=== PATIENT | female | born 1970 | race African-American/Black ===

== ENCOUNTER 2019-11-23 06:21 | Inpatient (IN) ==
--- NOTE | 2019-11-17 16:37 | PAT Medication Instructions ---
Medication Instructions Date of Service November 17, 2019 Home Medications cyclobenzaprine 5 mg PO TID PRN gabapentin 300 mg PO HS naproxen sodium [Aleve] 660 mg PO BID PRN ASK your surgeon for instructions naproxen sodium [Aleve] 660 mg PO BID PRN DO NOT take the morning of surgery cyclobenzaprine 5 mg PO TID PRN Take evening before surgery cyclobenzaprine 5 mg PO TID PRN gabapentin 300 mg PO HS OTHERWISE NOTHING TO EAT OR DRINK AFTER MIDNIGHT Other Notes If you have any questions please call us at [phone] or [phone] or [phone] or [phone]
--- NOTE | 2019-11-21 11:00 | Anesthesiology Consultation ---
Date of Service November 21, 2019 Assessment & Plan (1) Encounter for pre-operative examination: Chart Review Chart Review: Acceptable Risk for Surgery and Patient seen in Pre Admission Testing Per PAT appt on 11/21/19, pt denies any recent travel. Had for preop Covid testing 11/[address] Gray's office= results negative - states she has been social distancing and self quarantining since that time. Educated on importance of continuing to self quarantine, social distance and to wear mask in public both for the patient and household contacts. Teaching & Discussion Pre-Anesthesia Teaching/Discussion Notes: Instructed NPO after midnight before surgery,except medications with 15 cc of water. Medication instructions provided according to the PAT guidelines. History Surgery Operation Date: 11/23/19 11:25 Proposed Procedures p C5-C7 Anterior Cervical Discectomy and Fusion, Spinal Cord Monitoring - Loi Gray, DO Height/Weight Height: 5 ft 6 in Weight: 73.6 kg Allergies Allergy/AdvReac Type Severity Reaction Status Date / Time No Known Allergies Allergy Verified 11/13/19 15:03 Medications Home Medications Medication Instructions Recorded Confirmed Last Taken cyclobenzaprine 5 mg PO TID PRN 11/13/19 11/13/19 Unknown gabapentin 300 mg PO HS 11/13/19 11/13/19 Unknown naproxen sodium [Aleve] 660 mg PO BID PRN 11/13/19 11/13/19 Unknown Past Medical History Medical History Bowel perforation 2000> HAPPENED DURING ENDOMETERAL ABLATION Cardiac murmur SINCE KID - RESOLVED PER PATIENT Degenerative disc disease Depression STABLE AND CONTROLLED Hx of small bowel obstruction DUE TO ADHESIONS FROM PAST SURGERY in 2017 Osteoarthritis Exercise / Class Metabolic Activity II 4-5 Yardwork/Stairs/Walk up hill (ONE FLIGHT OF STAIRS- NO CHEST PAIN OR SOB ) Past Family History Family History Father Colon cancer Diabetes Past Surgical History Surgical History History of bilateral tubal ligation History of bowel resection 2014> ALCIDES NGOZI History of colonoscopy History of endometrial ablation History of esophagogastroduodenoscopy (EGD) History of hysterectomy History of tooth extraction Past Anesthesia History No Hx of Anesthesia Complications and No Family Hx of Anesthesia Complications History of PONV No Hx of PONV and No Hx of Motion Sickness Social History Smoking Status: Current every day smoker tobacco type: cigarettes Smoking cigarettes per day: 1 PPD Do You Dip or Chew Tobacco: No Hx Alcohol Use: Yes Alcohol type: beer and wine alcohol intake frequency: a few times a month Hx Substance Use: No substance use type: does not use Review of Systems Occ snoring if extremely tired- no witnessed apnea or history of sleep test Patient denies chest pain, shortness of breath, dyspnea on exertion, reflux, cough, wheezing, palpitations. No hx of seizures, stroke, [place]. No hx of blood clots or blood transfusions Physical Exam Vital Signs VITALS BP 120/86 P 92 TEMP 97.9 SP02 99% RESP 16 Constitutional no acute distress ENMT Thyromental Distance: > or= 3.5 Finger Breadths (3.5) Mallampati Class: III Crowns - molars Neck + limited neck extension (moderate to severe ) Respiratory normal respiratory effort; no respiratory distress Auscultation: lungs clear to auscultation bilaterally; no wheezes Cardiovascular Rate/Rhythm: regular rate and regular rhythm Heart Sounds: no murmur Vessels: no carotid bruit Musculoskeletal Spine: + pain with cervical ROM Neurologic moves all extremities Psychiatric Orientation: alert Testing Laboratory Results 11/21/19 11:19 11/21/19 11:19 PT 10.3 Seconds (9.0-12.0) 11/21/19 11:19 INR 1.0 (0.9-1.1) 11/21/19 11:19 APTT 28.9 Seconds (21.0-31.0) 11/21/19 11:19 Blood Type A Positive 11/21/19 11:19 Antibody Screen NEGATIVE 11/21/19 11:19 Electrocardiogram Date: 11/21/19 Findings: + NSR @ (89) Early repolarization. Chest X-Ray Date: 11/21/19 Findings: + NAD
--- NOTE | 2019-11-21 11:54 | XRay Report ---
XR chest Pre-admission PA/Lat CLINICAL HISTORY: Preoperative evaluation. COMPARISON STUDY: No previous studies for comparison. FINDINGS: Lung volumes are normal. Lungs are clear. There is no pneumothorax or pleural effusion. Car diac size is normal. Mediastinal contours are normal. There is no evidence for pulmonary edema. IMPRESSION: No acute cardiopulmonary findings. ACT 112: Negative or not required by law. Electronically signed by: Howie Vasquez M.D. 11/21/2019 11:52 AM
[2019-11-21 13:11] LABS: Basophils # (auto) 0.04 K/uL (0-0.2); Basophils % (auto) 0.6 %; Eosinophils # (auto) 0.13 K/uL (0-0.5); Eosinophils % (auto) 1.8 %; Hematocrit (blood only) 41.8 % (37-47); Hemoglobin 13.7 g/dL (12.0-16.0); Immature Granulocytes # (auto) 0.01 K/uL (0.00-0.02); Immature Granulocytes % (auto) 0.1 %; Lymphocytes # (auto) 2.46 K/uL (1.2-3.4); Lymphocytes % (auto) 34.9 %; Mean Corpuscular Hemoglobin 29.3 pg (25-34); Mean Corpuscular Hgb Conc 32.8 g/dL (32-36); Mean Corpuscular Volume 89.3 fL (80-100); Mean Platelet Volume 12.1 fL (7.4-10.4); Monocytes # (auto) 0.56 K/uL (0.11-0.59); Neutrophils # (auto) 3.84 K/uL (1.4-6.5); Neutrophils % (auto) 54.6 %; Platelet Count 248 K/uL (130-400); RDW Coefficient of Variation 14.6 % (11.5-14.5); RDW Standard Deviation 47.6 fL (36.4-46.3); Red Blood Count 4.68 M/uL (4.2-5.4); White Blood Count 7.04 K/uL (4.8-10.8)
[2019-11-21 13:27] LABS: Partial Thromboplastin Time 28.9 Seconds (21.0-31.0); Prothrombin Time 10.3 Seconds (9.0-12.0)
--- NOTE | 2019-11-21 13:43 | Electrocardiogram Report ---
Test Reason : Blood Pressure : / mmHG Vent. Rate : 089 BPM Atrial Rate : 089 BPM P-R Int : 144 ms QRS Dur : 090 ms QT Int : 374 ms P-R-T Axes : 078 088 064 degrees QTc Int : 455 ms Normal sinus rhythm Early repolarization Normal ECG No previous ECGs available Confirmed by Rigo Guzman ([id number]) on 11/21/2019 1:43:07 PM Referred By: Loi Gray Confirmed By:Rigo Guzman
[2019-11-21 14:11] LABS: BUN Creatinine Ratio 18.9 (10-20); Calcium 8.9 mg/dl (8.5-10.1); Creatinine Clr Calc Pharmacy 85.4 ml/min; Est GFR (African American) 98.9; Est GFR (Non-African American) 85.4; Potassium 4.3 mmol/L (3.5-5.1)
[~2019-11-23 06:21] MED LIST: ACETAMINOPHEN 500 MG TAB PO SCH; CEFAZOLIN 1000MG 1,000 MG/7.5 ML SYR IV SCH; CeleBREX 200 MG CAP PO SCH; GABAPENTIN 900 MG DOSE PO SCH; LR 15ML/HR IV SCH
[2019-11-23] MEDS ORDERED: REMIFENTANIL HCL 1 MG VIAL ONE (06:23)
[2019-11-23] MEDS ORDERED: PROPOFOL IV EMULSION 10 MG/ML 100 ML VIAL IV ONE (06:42)
[2019-11-23] MEDS ORDERED: MIDAZOLAM HCL 1 MG/ML 2ML VIAL ONE (06:43)
[2019-11-23] MEDS ORDERED: fentaNYL citrate 100 MCG/2 ML VIAL ONE (06:43)
[2019-11-23] MEDS ORDERED: HYDROmorphone INJ 2 MG/ML SYR/VIAL ONE (06:43)
[2019-11-23 06:47] LABS: Appearance Urine Clear (Clear); Bacteria Urine Automated Negative (Negative); Bilirubin Urine Negative (Negative); Blood Urine 1+ (Negative); Color Urine Yellow; Epithelial Cell Urine Auto 20-30 /lpf (0-5); Glucose Urine UA Negative (Negative); Ketones Urine Negative (Negative); Leukocyte Esterase Urine Negative (Negative); Nitrite Urine Negative (Negative); Protein Urine Negative (Negative); Specific Gravity Urine 1.023 (1.000-1.030); Urobilinogen Urine Negative (Negative); pH Urine 5.5 (4.5-7.5)
[2019-11-23] MEDS ORDERED: LARYING-O-JET KIT (LTA) ONE (06:57)
[2019-11-23] MEDS ORDERED: SUCCINYLCHOLINE CHLORIDE 20 MG/ML 10 ML VIAL IV ONE (06:57)
[2019-11-23] MEDS ORDERED: ONDANSETRON INJ 2 MG/ML 2 ML VIAL ONE (06:57)
[2019-11-23] MEDS ORDERED: NEOSTIGMINE METHYLSULFATE 1 MG/ML 10ML VIAL ONE (06:57)
[2019-11-23] MEDS ORDERED: PROPOFOL IV EMULSION 10 MG/ML 20 ML VIAL IV ONE (06:57)
[2019-11-23] MEDS ORDERED: DEXAMETHASONE SOD INJ 4 MG/ML VIAL ONE (06:57)
[2019-11-23] MEDS ORDERED: ROCURONIUM BROMIDE 10 MG/ML 5 ML VIAL IV ONE (06:57)
[2019-11-23] MEDS ORDERED: LIDOCAINE HCL 2% 2 ML VIAL/AMP(20MG/ML) INFIL ONE (06:57)
[2019-11-23] MEDS ORDERED: GLYCOPYRROLATE 0.2 MG/ML VIAL ONE (06:57)
[2019-11-23] MEDS ORDERED: BACITRACIN INJ 50,000 UNIT VIAL ONE (07:08)
[2019-11-23] MEDS ORDERED: FLOSEAL HEMOSTATIC MATRIX 10ML TOP ONE (07:22)
--- NOTE | 2019-11-23 07:30 | History & Physical Bridge Note ---
Date of Service November 23, 2019 History & Physical Bridge Note I have examined the patient, reviewed the History & Physical and in the interval since the performance of the History & Physical I have noted the following changes of clinical significance: no changes noted
--- NOTE | 2019-11-23 07:31 | History & Physical Report ---
Date of Service November 23, 2019 Assessment & Plan (1) Cervical stenosis of spinal canal: Anterior cervical discectomy and fusion C5-C7 Present on Admission?: Yes History of Present Illness Chief Complaint: Neck and arm pain Primary Care Provider: Brianna Presley DO This is a 49-year-old female who presents with chronic persistent neck and arm pain. After failing course of nonoperative care is here for surgical invention. Allergies Allergy/AdvReac Type Severity Reaction Status Date / Time No Known Allergies Allergy Verified 11/23/19 06:47 Home Medications Home Medications Medication Instructions Recorded Confirmed Type cyclobenzaprine 5 mg PO TID PRN 11/13/19 11/23/19 History gabapentin 600 mg PO HS 11/13/19 11/23/19 History naproxen sodium [Aleve] 660 mg PO BID PRN 11/13/19 11/23/19 History Past Med/Surg History Medical History Bowel perforation 2000> HAPPENED DURING ENDOMETERAL ABLATION Cardiac murmur SINCE KID - RESOLVED PER PATIENT Degenerative disc disease Depression STABLE AND CONTROLLED Hx of small bowel obstruction DUE TO ADHESIONS FROM PAST SURGERY in 2017 Osteoarthritis Surgical History History of bilateral tubal ligation History of bowel resection 2014> ALCIDES NGOZI History of colonoscopy History of endometrial ablation History of esophagogastroduodenoscopy (EGD) History of hysterectomy History of tooth extraction Family History Father Colon cancer Diabetes Social History Smoking Status: Current every day smoker Cigarettes Per Day: 1 PPD; Second Hand Exposure: Yes; Do You Dip or Chew Tobacco: No; Tobacco Cessation Education Requested by Patient: No Hx Alcohol Use: Yes Alcohol type: beer and wine Hx Substance Use: No Preferred Language: Turkish Communication Ability: Effective Registry Nurse Required: No Beliefs That Will Affect Care: None Current Living Situation: Spouse and Family Other Information That Helps Us Care for You: No Feels Safe at Home: Yes Safety Concerns: Feels Safe At This Time Physical Exam Physical Exam: Patient is alert and oriented neurologically intact Heart regular in rhythm Lungs clear to auscultation Results & Data Vital Signs (Past 12 Hours) Vital Signs Temp Pulse Resp BP Pulse Ox 11/23/19 06:51 36.9 C 83 20 148/95 H 100
[2019-11-23] MEDS ORDERED: SCOPOLAMINE 1.5 MG TDSY TD ONE ×2 (07:33→07:35)
[2019-11-23] MEDS ORDERED: HYDROmorphone INJ 0.5 MG/0.5 ML SYR IV PRN ×2 (07:35→11:20)
[2019-11-23] MEDS ORDERED: PROMETHAZINE HCL 6.25 MG in SODIUM CHLORIDE 0.9% 50 ML IV PRN (07:35)
[2019-11-23] MEDS ORDERED: ATROPINE SULFATE 0.1 MG/ML 10ML SYR IV PRN (07:35)
[2019-11-23] MEDS ORDERED: LABETALOL HCL IV 5 MG/ML 20ML IV PRN (07:35)
[2019-11-23] MEDS ORDERED: ONDANSETRON INJ 2 MG/ML 2 ML VIAL IV PRN ×2 (07:35→11:20)
[2019-11-23] MEDS ORDERED: CHECK SCOPOLAMINE PATCH PLACEMENT SCH (08:00)
[2019-11-23] MEDS ORDERED: ePHEDrine sulfate 50 MG/ML SYR ONE (08:26)
[2019-11-23] MEDS ORDERED: PHENYLEPHRINE 100MCG/ML 5ML SYR ONE (08:26)
--- NOTE | 2019-11-23 09:09 | Operative Report ---
Post Operative Report Pre & Post Diagnosis Operation Date: 11/23/19 07:45 Pre-Op Diagnosis: Spinal Stenosis, Cervical Region Post-Op Diagnosis: Spinal Stenosis, Cervical Region I identified the patient and participated in the time-out.: Yes Procedure Operation Date: 11/23/19 07:45 Actual Procedures #1 anterior cervical discectomy with bilateral foraminotomies C5-6 and C6-7. #2 anterior cervical arthrodesis C5-6 C6-7. #3 placement of Spira cage filled with DBM 6 mm in height at C5-6 and C6-7. #4 application of tam plate and screws across C5-6 and C6-7. Surgeon Loi Gray, Occupational Health Manager Nichelle Steven Estimated Blood Loss 10 Findings Consistent with Post-Op Diagnosis Specimens None Indications This is a 49-year-old female who presents above-mentioned diagnosis. After failing extensive course of nonoperative care is here for surgical invention. Description of Procedure Patient was met with identified informed consent obtained. Patient was then taken to the operative suite underwent an patient placed in supine position the Preet table the head Castrejon head were. All bony prominences well-padded eyes inspected to ensure no external pressure placed upon the. This point the anterior cervical spine was prepped and draped in normal sterile fashion. The assistance of fluoroscopy to find the C6 vertebral body and a transverse incision was placed on the right anterior aspect of the cervical spine. Sharp dissection with assistance of bipolar cautery performed down to and exposing the anterior cervical spine from C5-C7. This overdue retractors placed. Then performed a complete discectomy of C5-6 out to the uncovertebral joints bilaterally. Wesley distracting pins were used to assist in visualization. Removed the entire disc up to the uncovertebral joints bilaterally. Include removal of all posterior annular fibers longitudinally and bilateral foraminotomies performed. Endplates then burred to subcortical bleeding bone and a 6 mm Spira cage filled DBM tapped in position. Then proceeded to C6-7 again complete discectomy performed out to the uncovertebral's bilaterally. Wesley distracting pins again utilized. Removed all posterior and the fibers longitudinal ligament bilateral foraminotomies performed. Endplates burred to subcortical bleeding bone and again a 6 mm spiral cage filled with DBM tapped in position. Distracting apparatus was removed all anterior osteophytes burred to a smooth cortical surface and a 5 complete screws applied with the assistance of fluoroscopy. The incision was then copiously irrigated explored to ensure no damage to surrounding structures remaining bleeding. 10 round JERSON drain inserted. Incision was then closed with 2-0 Vicryl in the fashion of 4 Monocryl for final skin closure. Steri-Strip sterile dressings placed. Patient waken taken PACU stable condition. Please note spinal cord monitoring was utilized that the procedure no changes noted. Lastly Nichelle Steven was present at the entire procedure involved the patient positioning complex portions of the surgery and final skin closure. I attest to the content of the Intraoperative Record and any orders documented therein. Any exceptions are noted below.
--- NOTE | 2019-11-23 09:36 | Fluoroscopy Report ---
FL cervical 2-3V CLINICAL HISTORY: C5-7 ACDF COMPARISON STUDY: None. FLUOROSCOPY TIME: 6 seconds. FINDINGS: 2 fluoroscopic spot images of the cervical spine were submitted. Anterior cervical discecto my and fusion from C5 through C7. The hardware is intact. IMPRESSION: Fluoroscopy provided for C5-C7 ACDF. ACT 112: Negative or not required by law. Electronically signed by: Agustin Patel M.D. 11/23/2019 9:34 AM
--- NOTE | 2019-11-23 10:36 | Anesthesiology Progress Note ---
Date of Service November 23, 2019 Anesthesia Post Procedure Vital Signs Vital Signs: Temp Pulse Pulse Resp BP Pulse Ox 11/23/19 10:05 77 12 141/82 H 100 11/23/19 09:55 80 12 146/79 H 100 11/23/19 09:45 79 14 142/83 H 100 11/23/19 09:35 84 14 135/84 100 11/23/19 09:28 36.3 C L 88 18 135/79 100 11/23/19 06:51 36.9 C 83 20 148/95 H 100 Transfer of Care Handoff Completed per policy Notes Mental Status: alert / awake / arousable Patient Amnestic to Procedure: Yes Nausea / Vomiting: adequately controlled Pain: adequately controlled Airway Patency, RR, SpO2: stable & adequate BP & HR: stable & adequate Hydration State: stable & adequate Anesthetic Complications: no major complications apparent
[2019-11-23] MEDS ORDERED: LORazepam 0.5 MG TAB PO PRN (11:20)
[2019-11-23] MEDS ORDERED: FAMOTIDINE 20 MG TAB PO PRN (11:20)
[2019-11-23] MEDS ORDERED: DEXAMETHASONE SOD PHOSPHATE 8 MG in SYRINGE 0 ML IV PRN (11:20)
[2019-11-23] MEDS ORDERED: DO NOT ADMINISTER FLU VACCINE PRN (11:20)
[2019-11-23] MEDS ORDERED: HYDROmorphone INJ 1 MG/ML SYRINGE IV PRN (11:20)
[2019-11-23] MEDS ORDERED: DO NOT ADMINISTER PNEUMOCOCCAL VACCINE PRN (11:20)
[2019-11-23] MEDS ORDERED: NALOXONE HCL 0.4 MG/1 ML VIAL/CARP IV PRN (11:20)
[2019-11-23] MEDS ORDERED: ONDANSETRON 4 MG OD TAB PO PRN (11:20)
[2019-11-23] MEDS ORDERED: RACEPINEPHRINE 2.25% NEBU SOLN 0.5 ML VIAL INH PRN (11:20)
[2019-11-23] MEDS ORDERED: ALUMINUM/MAGNESIUM SUSP 30 ML UDC PO PRN (11:20)
[2019-11-23] MEDS ORDERED: TRAMADOL HCL 50 MG TABLET PO PRN (11:20)
[2019-11-23] MEDS ORDERED: MAGNESIUM HYDROXIDE SUSP 30 ML UDC PO PRN (11:20)
[2019-11-23] MEDS ORDERED: LORazepam 0.5 MG/1 ML VIAL IV PRN (11:20)
[2019-11-23] MEDS ORDERED: ACETAMINOPHEN 1,000 MG/100 ML VIAL IV PRN (11:20)
[2019-11-23] MEDS ORDERED: PROMETHAZINE HCL 12.5 MG in SODIUM CHLORIDE 0.9% 50 ML IV PRN (11:20)
[2019-11-23] MEDS ORDERED: SOD PHOSPHATE/SOD BIPHOSPHATE ENEMA 132 ML BTL PR PRN (11:20)
[2019-11-23] MEDS ORDERED: METOCLOPRAMIDE HCL INJ 5 MG/ML 2 ML VIAL IV PRN (11:20)
[2019-11-23] MEDS ORDERED: ACETAMINOPHEN 500 MG TAB PO PRN (11:20)
[2019-11-23] MEDS ORDERED: LACTATED RINGER'S 1,000 ML IV SCH (12:00)
[2019-11-23] MEDS: OXYCODONE HCL IR 5 MG TAB (IMMEDIATE RELEASE) PO PRN ×3 (12:08→20:09)
[2019-11-23] MEDS: CEFAZOLIN 1000MG 1,000 MG/7.5 ML SYR IV SCH (16:18)
[2019-11-23] MEDS ORDERED: GABAPENTIN 600 MG TAB PO SCH (21:00)
[2019-11-23] MEDS ORDERED: DOCUSATE SODIUM/SENNA 50/8.6MG TAB PO SCH (21:00)
[2019-11-24] MEDS: CEFAZOLIN 1000MG 1,000 MG/7.5 ML SYR IV SCH (00:09)
[2019-11-24] MEDS: OXYCODONE HCL IR 5 MG TAB (IMMEDIATE RELEASE) PO PRN ×3 (00:09→08:57)
[2019-11-24] MEDS ORDERED: POLYETHYLENE (MIRALAX) 17 GM PACK PO SCH (09:10)
[2019-11-24] MEDS ORDERED: DEXAMETHASONE SOD PHOSPHATE 8 MG in SYRINGE 0 ML IV ONE (09:45)
--- NOTE | 2019-11-24 11:06 | Discharge Summary ---
Date of Service November 24, 2019 Admission HPI Per Admitting Provider This is a 49-year-old female who presents with chronic persistent neck and arm pain. After failing course of nonoperative care is here for surgical invention. Principal Diagnosis Cervical spinal stenosis with with radiculopathy Discharge Data Allergies Allergy/AdvReac Type Severity Reaction Status Date / Time No Known Allergies Allergy Verified 11/23/19 06:47 Procedures Performed Operation Date: 11/23/19 07:45 Actual Procedures p C5-C7 Anterior Cervical Discectomy and Fusion, Spinal Cord Monitoring - Loi Gray DO Ordered Studies 11/23/19 07:45 FL cervical 2-3V Routine FL fluoroscopy <1hr Routine Hospital Course (1) Cervical stenosis of spinal canal: Patient went anterior cervical discectomy and fusion tolerated as well as taken to the orthopedic floor postoperative. Postop day 1 she was swallowing well no hoarseness arm symptoms markedly improved. JERSON drain decreasing probably. Excellent strength testing. Subsequently discharged home. Discharge orders and instructions from the chart for further review. Total Time Total Time Spent Total Time Spent (In Minutes): 20 minutes Discharge Plan Discharge Items Patient Disposition: Home - Self-Care Reason For Visit: Spinal Stenosis, Cervical Region Discharge Diagnosis: Cervical spinal stenosis with radiculopathy Activity: As commented below Non-emergency contact: Primary Care Provider Call non-emergency contact if: you have any medication questions Follow-up/Referrals: Brianna Presley DO [Primary Care Provider] - Diet: Regular Addtl Attending Provider Instructions: ACTIVITY RECOMMENDATIONS: SELF CARE INSTRUCTIONS AFTER CERVICAL FUSIONS 1. No smoking. Smoking drastically decreases the chance of a solid fusion. 2. No bending, lifting more than 5 pounds, or twisting (roll like a log when turning in bed). 3. You may shower 3 days after surgery. Thoroughly dry wound. Do not soak in the tub. 4. Cervical collar: Must be worn at all times including sleeping. You may remove the brace only to bath, eat and if you are sitting in a recliner. 5. Please walk as much as you can for exercise. Gradually increase the distance that you walk as your endurance increases. SPECIAL CARE INSTRUCTIONS: VERY IMPORTANT TO READ AND REVIEW A. Do not take any anti-inflammatory medications (i.e. Indocin, Advil, Aspirin, Naprosyn, Aleve, Motrin, etc.) as these may inhibit the chance of a solid fusion. Tylenol is okay to take. B. Your surgical incision has been closed with a cosmetic suture under the skin that will dissolve in about 6 weeks. In 14 days, you can use a pair of clean scissors and cut the suture that is left outside of the skin at the ends of your incision. C. Complications are uncommon, but please contact us if you have any signs or symptoms of: 1. wound infection (fever higher than 102.5 degrees F, redness, separation of wound, drainage, or increasing pain from the incision) 2. blood clots in legs (pain, swelling, redness and warmth in legs) 3. urinary tract infection (fever higher than 102.5 degrees, burning upon urination or increased frequency of urination) 4. nerve problems (inability to walk on your toes or heels, numbness, loss of bowel or bladder control) 5. any other symptoms that concern you. D. Please call the office at if you have any concerns or questions about your operation or recovery. MANAGING PAIN AFTER SPINAL SURGERY 1. Narcotic medication is intended for short-term use and will be provided for surgical pain. Surgical pain usually lasts for a period of 4-6 weeks. Narcotic medication includes Percocet, Vicodin, Darvocet, Tylenol #3 or Lortab. 2. Longer-term pain is more appropriately treated with non-narcotic medication such as Tylenol ES. 3. Muscle spasm is not appropriately treated with narcotics. Muscle relaxers such as Soma, Flexeril or Skelaxin can be used along with Tylenol ES. 4. Remember that we all live with some "aches and pains". This is not unusual or uncommon after an injury or as we get older. 5. We will provide appropriate medication within the normal guidelines of their prescribed use. We will also be very cautious and aware of potential abuse and extended duration of patients' medication needs. 6. Please allow 2-3 days to process refills. Prescriptions will not be mailed but must be picked up at the office. FOLLOW UP VISIT: Keep your scheduled follow-up appointment. Any questions, please call the office at . Pending Studies at Discharge: No Stand-Alone Forms: [facility], Opioid Pain Management, Smoking Cessation Medications and DC Order Prescriptions: New tramadol 50 mg tablet 50 mg PO Q6H PRN (Reason: pain, moderate) Qty: 15 RF: 0 oxycodone 5 mg tablet 5 mg PO Q6H PRN (Reason: pain, severe) Qty: 15 RF: 0 Continued gabapentin 300 mg Capsule 600 mg PO HS RF: 0 cyclobenzaprine 5 mg Tablet 5 mg PO TID PRN (Reason: Muscle Pain) RF: 0 Discontinued naproxen sodium [Aleve] 220 mg Tablet 660 mg PO BID PRN (Reason: Pain) RF: 0 Discharge Orders: Discharge Order (Routine); Ordered 11/24/19 Ordered By: Loi Valente/Other Patient Handouts: Spinal Fusion: Cervical, Discharge Instructions for Cervical Fusion Admission Data Admit Date/Time: 11/23/19 10:09 Attending Provider: Loi Gray Admit Provider: Loi Gray Primary Care Provider: Brianna Presley Other Interventions: Discharge Summary Assessment (RN) Last Done: 11/24/19 09:57
[2019-11-25] MEDS ORDERED: bisacodyL 10 MG SUPP PR PRN (09:10)
== END 2019-11-24 11:59 | disposition home or self-care (01) | DRG 473 ==
LOC: ASU 06:21 → 3E 06:21 → OBSVTOIN 10:09

== ENCOUNTER 2022-05-18 10:39 | Inpatient (IN) ==
--- NOTE | 2022-05-11 09:27 | Anesthesiology Consultation ---
Date of Service May 11, 2022 Assessment & Plan (1) Encounter for pre-operative examination: COVID screening: Per assessment on 05/08: No known COVID-19 positive contacts or current COVID-19 related symptoms. Travel screen negative. Patient vaccinated. At surgeon discretion if preop Covid testing being done. Chart Review Chart Review: Acceptable Risk for Surgery and Patient NOT seen in Pre Admission Testing History Surgery Operation Date: 05/18/22 12:25 Proposed Procedures p L5-S1 Decompression and Fusion Spinal Cord Monitoring - Loi Gray DO Height/Weight Height: 5 ft 6 in Weight: 77.111 kg Allergies Allergy/AdvReac Type Severity Reaction Status Date / Time Penicillins Allergy Hives Verified 05/08/22 16:36 Medications Home Medications Medication Instructions Recorded Confirmed Last Taken cyclobenzaprine 5 mg tablet 5 mg PO TID PRN Muscle Pain 11/13/19 05/08/22 11/22/19 21:00 gabapentin 300 mg capsule 600 mg PO HS 11/13/19 05/08/22 11/22/19 21:00 tramadol 50 mg tablet 50 mg PO Q6H PRN pain, moderate 11/23/19 05/08/22 Unknown #15 tabs meloxicam 15 mg tablet 15 mg PO HS 05/08/22 05/08/22 Unknown Past Medical History Medical History Bowel perforation 2000 (during endometrial ablation) Cardiac murmur As child Degenerative disc disease Depression Stable, controlled Hx of small bowel obstruction R/t adhesions from previous surgery in 2017 Osteoarthritis Past Family History Family History Father Colon cancer Diabetes Past Surgical History Surgical History History of bilateral tubal ligation History of bowel resection 2015 > ALCIDES NGOZI History of colonoscopy History of endometrial ablation History of esophagogastroduodenoscopy (EGD) History of fusion of cervical spine ROM WNL per pt History of hysterectomy History of tooth extraction S/P excision of lipoma Social History Smoking Status: Current every day smoker tobacco type: cigarettes Smoking cigarettes per day: 1 PPD Do You Dip or Chew Tobacco: No Hx Alcohol Use: Yes Alcohol type: beer and wine alcohol intake frequency: holidays/special occasions only Hx Substance Use: No substance use type: does not use Lab Results Anesthesia Preop Results Results Anesthesia Widget: WBC 7.49 K/ul (4.8-10.8) 04/10/22 Hgb 13.5 g/dl (12.0-16.0) 04/10/22 Hct 41.7 % (34.1-44.9) 04/10/22 Plt 275 K/uL (130-400) 04/10/22 Na 141 mmol/L (136-145) 04/10/22 K 3.7 mmol/L (3.5-5.1) 04/10/22 Cl 106 mmol/L (98-107) 04/10/22 CO2 29 mmol/L (21-32) 04/10/22 BUN 17 mg/dl (6-23) 04/10/22 Creat 0.69 mg/dl (0.6-1.2) 04/10/22 Glucose Level 89 mg/dl (70-99(Fasting)) 04/10/22 PT 10.4 Seconds (9.0-12.0) 04/10/22 PTT 26.8 Seconds (21.0-31.0) 04/10/22 INR 1.0 (0.9-1.1) 04/10/22 Urine Color Yellow 04/10/22 Urine Appearance Clear (Clear) 04/10/22 Urine pH 6.0 (4.5-7.5) 04/10/22 Urine Specific [place] 1.013 (1.000-1.030) 04/10/22 Urine Protein Negative (Negative) 04/10/22 Urine Glucose (UA) Trace (Negative) H 04/10/22 Urine Ketones Negative (Negative) 04/10/22 Urine Blood 2+ (Negative) H 04/10/22 Urine Nitrite Negative (Negative) 04/10/22 Urine Bilirubin Negative (Negative) 04/10/22 Urine Urobilinogen Negative (Negative) 04/10/22 Urine Leukocyte Esterase Negative (Negative) 04/10/22 Urine WBC (Auto) 1-5 /hpf (0-5) 04/10/22 Urine RBC (Auto) 10-30 /hpf (0-4) H 04/10/22 Urine Hyaline Casts (Auto) 0 /lpf (0-5) 04/10/22 Urine Epithelial Cells (Auto) 10-20 /lpf (0-5) H 04/10/22 Urine Bacteria (Auto) Negative (Negative) 04/10/22 Blood Type A Positive 04/10/22 Antibody Screen NEGATIVE 04/10/22 Testing Electrocardiogram Date: 04/10/22 NSR at 82bpm. Minimal voltage criteria for LVH, may be normal variant. No significant change compared to 11/21/19 per duralumin metalworker comparison. Chest X-Ray Date: 04/10/22 Findings: + NAD Stress Test Date: 10/14/20 Stress EKG negative for myocardial ischemia at 92% MPHR. Moderate level of exercise achieved. SOB reproduced with exercise. 7 METS.
[~2022-05-18 10:39] MED LIST changes: -CEFAZOLIN 1000MG 1,000 MG/7.5 ML SYR IV SCH; +ceFAZolin 2000MG 2,000 MG/15 ML SYR IV SCH
[2022-05-18] MEDS ORDERED: ATROPINE SULFATE 0.1 MG/ML 10ML SYR IV PRN (11:29)
[2022-05-18] MEDS ORDERED: PROMETHAZINE HCL 6.25 MG in SODIUM CHLORIDE 0.9% 50 ML IV PRN (11:29)
[2022-05-18] MEDS ORDERED: ePHEDrine sulfate 50 MG/ML AMP IV PRN (11:29)
[2022-05-18] MEDS ORDERED: HYDROmorphone INJ 2 MG/ML SYR/VIAL IV PRN (11:29)
[2022-05-18] MEDS ORDERED: ONDANSETRON INJ 2 MG/ML 2 ML VIAL IV PRN ×2 (11:29→16:23)
[2022-05-18] MEDS ORDERED: MIDAZOLAM HCL 1 MG/ML 2ML VIAL ONE (11:40)
[2022-05-18] MEDS ORDERED: HYDROmorphone INJ 2 MG/ML SYR/VIAL ONE (11:41)
[2022-05-18] MEDS ORDERED: NEOSTIGMINE METHYLSULFATE 1 MG/ML 10ML VIAL ONE (11:44)
[2022-05-18] MEDS ORDERED: PROPOFOL IV EMULSION 10 MG/ML 20 ML VIAL IV ONE (11:44)
[2022-05-18] MEDS ORDERED: LIDOCAINE 2% MPF LOCAL 5 ML VIAL INFIL ONE (11:44)
[2022-05-18] MEDS ORDERED: DEXAMETHASONE SOD INJ 4 MG/ML VIAL ONE (11:44)
[2022-05-18] MEDS ORDERED: GLYCOPYRROLATE 0.2 MG/ML VIAL ONE (11:44)
[2022-05-18] MEDS ORDERED: ROCURONIUM BROMIDE 10 MG/ML 5 ML VIAL IV ONE (11:44)
[2022-05-18] MEDS ORDERED: ONDANSETRON INJ 2 MG/ML 2 ML VIAL ONE (11:44)
--- NOTE | 2022-05-18 12:49 | History & Physical Bridge Note ---
Date of Service May 18, 2022 History & Physical Bridge Note I have examined the patient, reviewed the History & Physical and in the interval since the performance of the History & Physical I have noted the following changes of clinical significance: no changes noted
--- NOTE | 2022-05-18 12:50 | History & Physical Report ---
Date of Service May 18, 2022 Assessment & Plan (1) Neurogenic claudication due to lumbar spinal stenosis: Plan: L5-S1 decompression and fusion History of Present Illness Chief Complaint: Back and leg pain Primary Care Provider: Brianna Presley DO This is a 51-year-old female presents with chronic persistent back and leg pain after failing course of nonoperative care she is here for surgical invention. Allergies Allergy/AdvReac Type Severity Reaction Status Date / Time Penicillins Allergy Hives Verified 05/18/22 11:06 Home Medications Medication Instructions Recorded Confirmed Type cyclobenzaprine 5 mg tablet 5 mg PO TID PRN Muscle Pain 11/13/19 05/18/22 History gabapentin 300 mg capsule 600 mg PO HS 11/13/19 05/18/22 History tramadol 50 mg tablet 50 mg PO Q6H PRN pain, moderate 11/23/19 05/18/22 Rx #15 tabs meloxicam 15 mg tablet 15 mg PO HS 05/08/22 05/18/22 History Past Med/Surg History Medical History Bowel perforation 2000 (during endometrial ablation) Cardiac murmur As child Degenerative disc disease Depression Stable, controlled Hx of small bowel obstruction R/t adhesions from previous surgery in 2017 Osteoarthritis Surgical History History of bilateral tubal ligation History of bowel resection 2014 > ALCIDES NGOZI History of colonoscopy History of endometrial ablation History of esophagogastroduodenoscopy (EGD) History of fusion of cervical spine ROM WNL per pt History of hysterectomy History of tooth extraction S/P excision of lipoma Family History Father Colon cancer Diabetes Social History Smoking Status: Current every day smoker Cigarettes Per Day: 1 PPD; Second Hand Exposure: No; Do You Dip or Chew Tobacco: No; Tobacco Cessation Education Requested by Patient: No Hx Alcohol Use: Yes Alcohol type: beer and wine Hx Substance Use: No Preferred Language: Wolof Communication Ability: Effective Office Runner Required: No Beliefs That Will Affect Care: None and Mu-Ism Mu-Ism Beliefs: Jew marital status: Unknown Current Living Situation: Spouse and Family Feels Safe at Home: Yes Safety Concerns: Feels Safe At This Time Assistive Devices: Glasses Physical Exam Physical Exam: Patient is alert and oriented Heart regular rhythm Lungs clear Results & Data Results & Data ([facility]) Vital Signs (Past 12 Hours) Vital Signs Temp Pulse Resp BP Pulse Ox O2 Del Method 05/18/22 11:03 36.7 C 93 H 20 151/99 H 98 Room Air
[2022-05-18] MEDS ORDERED: BUPIVACAINE/EPINEPHRINE 0.25% 1:200,000 30 ML VIAL ONE (13:11)
[2022-05-18] MEDS ORDERED: PHENYLEPHRINE 100MCG/ML 5ML SYR ONE (14:03)
[2022-05-18] MEDS ORDERED: FLOSEAL HEMOSTATIC MATRIX 10ML TOP ONE (14:12)
--- NOTE | 2022-05-18 14:44 | Operative Report ---
Post Operative Report Pre & Post Diagnosis Operation Date: 05/18/22 12:45 Pre-Op Diagnosis: Neurogenic Claudication due to Spinal Stenosis L5-S1 Post-Op Diagnosis: Neurogenic Claudication due to Spinal Stenosis L5-S1 I identified the patient and participated in the time-out.: Yes Procedure Operation Date: 05/18/22 12:45 Actual Procedures #1 lumbar decompression bilateral medial facetectomies and foraminotomies L5-S1. #2 posterior spinal fusion L5-S1. #3 placement posterior instrumentation L5- S1. #4 interbody fusion L5-S1. #5 placement of Spira 13 x 26 mm cage at L5-S1. #6 placement locally harvested morselized autograft in the posterior gutters. #7 placement of I factor model V toss in interbody space and posterior lateral gutters. Surgeon Loi Gray, DO [employer] Everardo Michel Estimated Blood Loss 50 Findings Consistent with Post-Op Diagnosis Specimens None Indications This is a 51-year-old female who presents above-mentioned diagnosis after failed course of nonoperative care is here for surgical invention. Description of Procedure Patient was met with identified informed consent obtained. Patient was then taken to the operative suite underwent a patient placed in a prone position the Dale table top Chi frame. All bony prominences well-padded eyes inspected to ensure no external pressure placed upon the. This point lumbar spine was prepped and draped in normal sterile fashion. Sharp dissection with assistance of Bovie cautery was performed down to and exposing the lamina and transverse processes of L5 and sacral ala bilaterally. From caudal cephalad fashion complete laminectomy L5 was performed including bilateral medial facetectomies foraminotomies addressing all neural compression. Pedicle screws were then placed in L5 and S1 levels bilaterally with assistance of fluoroscopy and the properly sized ru placed. By way of a transforaminal approach on the right complete discectomy of L5-S1 was performed endplates curetted to subcortical bleeding bone and a 13 x 26 mm spiral cage with I factor tapped in position. The rods were then locked into final position bilaterally. The transverse processes of L5 and the sacral ala burred to subcortical bleeding bone. I factor combined with V toss and locally harvested morselized autograft was placed in the posterior gutters. 15 round JERSON drain inserted. The incision was then closed with 1 Vicryl the fascia 2-0 Vicryl subcutaneously and 4 Monocryl f or final skin closure Steri-Strips dressings placed. Patient waken taken to PACU stable condition. Please note spinal cord monitoring visualized at the procedure no changes noted. Lastly Everardo Micehl was present at the entire procedure involved the patient positioning complex portions of the surgery and final skin closure. I attest to the content of the Intraoperative Record and any orders documented therein. Any exceptions are noted below.
--- NOTE | 2022-05-18 14:57 | Fluoroscopy Report ---
FL lumbar spine 2-3V CLINICAL HISTORY: L5-S1 DECOMPRESSION AND FUSION COMPARISON STUDY: None. FLUOROSCOPY TIME: 26 seconds FLUOROSCOPY IMAGES: 3 FINDINGS: Posterior decompression fusion at L5-S1 with pedicle screws and rods. The hardware appears intact. A disc spacer is in place. IMPRESSION: Fluoroscopic assistance provided for L5-S1 posterior decompression and fusion. ACT 112: Negative or not required by law. Electronically signed by: Agustin Patel M.D. 05/18/2022 2:56 PM
[2022-05-18] MEDS: fentaNYL citrate 100 MCG/2 ML VIAL IV PRN ×2 (15:19→15:25)
--- NOTE | 2022-05-18 15:28 | Anesthesiology Progress Note ---
Date of Service May 18, 2022 Anesthesia Post Procedure Vital Signs Vital Signs: Temp Pulse Pulse Resp BP Pulse Ox O2 Del Method 05/18/22 15:10 100 H 16 139/63 98 Oxymask 05/18/22 15:00 36.1 C L 95 H 12 123/82 98 Oxymask 05/18/22 11:03 36.7 C 93 H 20 151/99 H 98 Room Air O2 Flow Rate 05/18/22 15:10 5 05/18/22 15:00 5 05/18/22 11:03 Pain Intensity Lower Back: Pain Intensity: 5 Transfer of Care Handoff Completed per policy Notes Mental Status: alert / awake / arousable Patient Amnestic to Procedure: Yes Nausea / Vomiting: adequately controlled Pain: adequately controlled Airway Patency, RR, SpO2: stable & adequate BP & HR: stable & adequate Hydration State: stable & adequate Anesthetic Complications: no major complications apparent
[2022-05-18] MEDS ORDERED: LORazepam 0.5 MG TAB PO PRN (16:23)
[2022-05-18] MEDS ORDERED: DO NOT ADMINISTER FLU VACCINE PRN (16:23)
[2022-05-18] MEDS ORDERED: METOCLOPRAMIDE HCL INJ 5 MG/ML 2 ML VIAL IV PRN (16:23)
[2022-05-18] MEDS ORDERED: MAGNESIUM HYDROXIDE SUSP 30 ML UDC PO PRN (16:23)
[2022-05-18] MEDS ORDERED: SOD PHOSPHATE/SOD BIPHOSPHATE ENEMA 132 ML BTL PR PRN (16:23)
[2022-05-18] MEDS ORDERED: FAMOTIDINE 20 MG TAB PO PRN (16:23)
[2022-05-18] MEDS ORDERED: traMADol HCL 50 MG TABLET PO PRN (16:23)
[2022-05-18] MEDS ORDERED: hydrOXYzine HCl 25 MG TAB PO PRN (16:23)
[2022-05-18] MEDS ORDERED: PROMETHAZINE HCL 12.5 MG in SODIUM CHLORIDE 0.9% 50 ML IV PRN (16:23)
[2022-05-18] MEDS ORDERED: DO NOT ADMINISTER PNEUMOCOCCAL VACCINE PRN (16:23)
[2022-05-18] MEDS ORDERED: diphenhydrAMINE Capsule 25 MG CAP PO PRN (16:23)
[2022-05-18] MEDS ORDERED: LORazepam 2 MG/1 ML VIAL IV PRN (16:23)
[2022-05-18] MEDS ORDERED: ONDANSETRON 4 MG OD TAB PO PRN (16:23)
[2022-05-18] MEDS ORDERED: ACETAMINOPHEN 1,000 MG/100 ML VIAL IV PRN (16:23)
[2022-05-18] MEDS ORDERED: NALOXONE HCL 0.4 MG/1 ML VIAL/CARP IV PRN (16:23)
[2022-05-18] MEDS ORDERED: ACETAMINOPHEN 500 MG TAB PO PRN (16:23)
[2022-05-18] MEDS ORDERED: HYDROmorphone INJ 0.5 MG/0.5 ML SYR IV PRN (16:23)
[2022-05-18] MEDS ORDERED: bisacodyL 10 MG SUPP PR PRN (16:23)
[2022-05-18] MEDS: LACTATED RINGER'S 1,000 ML IV SCH (16:29)
[2022-05-18] MEDS: GABAPENTIN 300 MG CAP PO SCH (20:09)
[2022-05-18] MEDS: DOCUSATE SODIUM/SENNA 50/8.6MG TAB PO SCH (20:10)
[2022-05-18] MEDS: HYDROmorphone INJ 1 MG/ML SYRINGE IV PRN (20:33)
[2022-05-19] MEDS: LACTATED RINGER'S 1,000 ML IV SCH (00:18)
[2022-05-19] MEDS: HYDROmorphone INJ 1 MG/ML SYRINGE IV PRN ×5 (02:49→22:44)
[2022-05-19] MEDS: oxyCODONE HCL IR 5 MG TAB (IMMEDIATE RELEASE) PO PRN ×2 (04:30→21:32)
[2022-05-19] MEDS: POLYETHYLENE (MIRALAX) 17 GM PACK PO SCH ×4 (05:40→22:43)
[2022-05-19 07:23] LABS: Basophils # (auto) 0.05 K/uL (0-0.2); Basophils % (auto) 0.3 %; Hematocrit (blood only) 36.4 % (34.1-44.9); Immature Granulocytes # (auto) 0.04 K/uL (0.00-0.02); Immature Granulocytes % (auto) 0.3 %; Lymphocytes # (auto) 1.71 K/uL (1.2-3.4); Lymphocytes % (auto) 11.8 %; Mean Corpuscular Hemoglobin 28.8 pg (25.0-34.0); Mean Corpuscular Volume 87.3 fL (80.0-100.0); Monocytes # (auto) 1.23 K/uL (0.24-0.82); Monocytes % (auto) 8.5 %; Neutrophils # (auto) 11.42 K/uL (1.4-6.5); Neutrophils % (auto) 79.1 %; Platelet Count 243 K/uL (130-400); RDW Coefficient of Variation 13.8 % (11.5-14.5); Red Blood Count 4.17 M/uL (3.93-5.22); White Blood Count 14.45 K/ul (4.8-10.8)
[2022-05-19 07:45] LABS: BUN Creatinine Ratio 21.1 (10-20); Calcium 9.1 mg/dl (8.5-10.1); Creatinine Clr Calc Pharmacy 99.6 ml/min; Est GFR (African American) 112.7 ml/min; Est GFR (Non-African American) 97.2 ml/min; Potassium 4.5 mmol/L (3.5-5.1)
[2022-05-19] MEDS: CYCLOBENZAPRINE HCL 5 MG TAB PO PRN ×2 (08:28→22:43)
[2022-05-19] MEDS: dexAMETHasone 6 MG in SYRINGE 0 ML IV SCH (08:28)
--- NOTE | 2022-05-19 12:39 | Orthopedic Progress Note ---
Date of Service May 19, 2022 Assessment & Plan (1) Neurogenic claudication due to lumbar spinal stenosis: Plan: This time we will continue physical therapy monitor JERSON output over the discharge home tomorrow or the next day. Admission and Anticipated Discharge Date Admission Date: May 18, 2022 Subjective Back pain controlled leg pain improved Physical Exam Physical Exam: Patient is in bed at this time. She has been ambulating halls. She is good strength testing. Was comfortable. Results & Data ([facility]) Vital Signs (Past 12 Hours) Vital Signs Temp Pulse Resp BP BP Pulse Ox O2 Del Method 05/19/22 10:58 36.7 C 82 16 147/78 H 96 Room Air 05/19/22 07:28 36.5 C 78 16 138/85 95 Room Air 05/19/22 04:00 36.6 C 82 18 133/83 98 Room Air
[2022-05-19] MEDS: GABAPENTIN 300 MG CAP PO SCH (20:28)
[2022-05-19] MEDS: DOCUSATE SODIUM/SENNA 50/8.6MG TAB PO SCH (20:29)
[2022-05-20] MEDS: HYDROmorphone INJ 1 MG/ML SYRINGE IV PRN ×4 (02:49→14:18)
[2022-05-20] MEDS: POLYETHYLENE (MIRALAX) 17 GM PACK PO SCH ×2 (05:56→12:41)
[2022-05-20] MEDS: ALUMINUM/MAGNESIUM SUSP 30 ML UDC PO PRN ×2 (05:57→12:41)
[2022-05-20] MEDS: dexAMETHasone 6 MG in SYRINGE 0 ML IV SCH (08:02)
--- NOTE | 2022-05-20 08:30 | Discharge Summary ---
Date of Service May 20, 2022 Admission HPI Per Admitting Provider This is a 51-year-old female presents with chronic persistent back and leg pain after failing course of nonoperative care she is here for surgical invention. Admission Exam (Per Admitting) Constitutional WD/WN, vitals as above Eyes normal visual lopez by confrontation ENMT external ear and nose normal, oropharynx normal Neck normal visual inspection Respiratory normal respiratory effort Cardiovascular Extremities: normal capillary refill Gastrointestinal (Abdomen) Inspection/Auscultation: abdomen normal to inspection Musculoskeletal Spine: + pain with thoraco-lumbar ROM Skin no rashes, warm and dry Neurologic normal touch/pain/proprioception and moves all extremities Psychiatric A+Ox3, euthymic affect Eye Contact: good eye contact Discharge Data Procedures Performed Operation Date: 05/18/22 12:45 Actual Procedures p L5-S1 Decompression and Fusion, with Interbody Fusion L5-S1, Application of Ifactor and Vitoss Bone Graft, Spinal Cord Monitoring(Not Applicable) - Loi Gray DO Hospital Course (1) Neurogenic claudication due to lumbar spinal stenosis: Patient is being discharged home on postoperative day 2 status post TLIF L5-S1. She is doing great. Pain is controlled. She had a bowel movement. JERSON drain output is diminishing appropriately. She is making great progress daily and physical therapy. Lab values have been stable. Discharge Instructions ACTIVITY RECOMMENDATIONS: SELF CARE INSTRUCTIONS AFTER THORACIC/LUMBAR FUSIONS 1. You may walk to your tolerance. It is good exercise for your legs and back. Expect some back and intermittent leg aches and pains. 2. You may perform "counter-top" level activities (make a sandwich, juan alberto with a project, etc.). 3. No bending or lifting of more than 10 pounds or back twisting of any nature (roll like a log when turning in bed). 4. You may ride in a car for 20-30 minutes at a time. No driving until after your first visit with your doctor. 5. Frequent changes of position and restricting sitting to 30 minutes at a time will help limit the amount of back spasms and stiffness you may experience. 6. You may discontinue the use of ambulatory aids (cane, crutches, etc.) once your strength and confidence allow. 7. You may supervising floorperson the shower and let water strike your incision when you arrive home at least once daily. Do not take a tub bath, sit in a hot tub or go into a swimming pool until after your first recheck in the office. SPECIAL CARE INSTRUCTIONS: VERY IMPORTANT TO READ AND REVIEW A. Your surgical incision has been closed with a cosmetic suture under the skin that will dissolve in about 6 weeks. In 14 days, you can use a pair of clean scissors and cut the suture that is left outside of the skin at th e ends of your incision. 1. The small skin tapes can be removed 7 days after surgery if they have not fallen off by that point. 2. You may keep the wound open to air as much as possible to promote healing after post-op day number 5 unless told otherwise by your doctor. 3. If you think the wound looks like it is becoming infected (redness or worsening drainage) and/or you are experiencing fever, chill or worsening back pain and muscle spasms, contact the office so that we may evaluate you as soon as possible. B. Complications are uncommon, but please contact us if you have any signs or symptoms of: 1. wound infection (fever higher than 102.5 degrees F, redness, separation of wound, drainage, or increasing pain from the incision) 2. blood clots in legs (pain, swelling, redness and warmth in legs) 3. urinary tract infection (fever higher than 102.5 degrees F, burning upon urination or increased frequency of urination) 4. nerve problems (inability to walk on your toes or heels, numbness, loss of bowel or bladder control) 5. any other symptoms that concern you C. Please call the office at if you have any concerns or questions about your operation or recovery. D. No smoking! Smoking drastically decreases the chance of a solid fusion. E. Do not take any anti-inflammatory medications (Indocin, Advil, Motrin, Aspirin, Naprosyn, etc.) as these may inhibit the chance of a solid fusion. Tylenol is okay to take for pain. MANAGING PAIN AFTER SPINAL SURGERY 1. Narcotic medication is intended for short-term use and will be provided for surgical pain. Surgical pain usually lasts for a period of 4-6 weeks. Narcotic medication includes Percocet, Vicodin, Darvocet, Tylenol #3 or Lortab. 2. Longer-term pain is more appropriately treated with non-narcotic medication such as Tylenol ES. 3. Muscle spasm is not appropriately treated with narcotics. Muscle relaxers such as Soma, Flexeril or Skelaxin can be used along with Tylenol ES. 4. Remember that we all live with some "aches and pains". This is not unusual or uncommon after an injury or as we get older. a. Back pain is expected and may include muscle spasms for 4 to 6 weeks after surgery. The pain should gradually improve. If the pain worsens for no apparent reason, please contact the office. b. Intermittent leg pain may also be experienced and should not be concerned about unless it worsens for no apparent reason. If so, please contact the office. 5. We will provide appropriate medication within the normal guidelines of their prescribed use. We will also be very cautious and aware of potential abuse and extended duration of patients' medication needs. a. Pain medications are for your comfort and to assist with sleep and rest so that the tissue can heal. They are not provided in order to return to normal activity and should not be used through the day. To do so or worsening pain at night can result from ongoing tissue damage and development of tolerance to the prescribed medicine. 6. Please allow 2-3 days to process refills. Prescriptions will not be mailed but must be picked up at the office. FOLLOW UP VISIT: Keep your scheduled follow-up appointment. Any questions, please call the office at .
[2022-05-20] MEDS ORDERED: SOD PHOSPHATE/SOD BIPHOSPHATE ENEMA 132 ML BTL PR PRN (10:15)
== END 2022-05-20 14:57 | disposition home or self-care (01) | DRG 455 ==
LOC: ASU 10:39 → 3W 14:46